=== PATIENT | male | born 1985 | race African-American/Black ===

== ENCOUNTER 2017-09-11 13:35 | Emergency (ER) | payer SELFPAY ==
[~2017-09-11] VITALS: Ht 182.9 cm; Wt 84.0 kg
[2017-09-11 13:57] VITALS: BP 117/83
== END 2017-09-11 15:25 | disposition left against medical advice (07) ==
LOC: ER 15:23
DX: Z53.21 Procedure and treatment not carried out due to patient leaving prior to being seen by health care provider (principal)